=== PATIENT | female | born 1975 | race Caucasian/White ===

== ENCOUNTER 2018-09-19 17:28 | Emergency (ER) | payer SELFPAY ==
[~2018-09-19] VITALS: Ht 170.2 cm; Wt 102.7 kg
[2018-09-19 17:48] VITALS: BP 176/107
--- NOTE | 2018-09-19 17:56 | NUR ---
pt states she has been noncompliant with htn meds x 2 years. denies chest pain, denies headache, denies sob, denies vision changes.
[2018-09-19] MEDS ORDERED: KETOROLAC 30 MG/1 ML ONE (18:18)
--- NOTE | 2018-09-19 18:23 | NUR ---
Discharge instructions discussed with patient including when to return to emergency department, patient verbalizes understanding. Prescription provided with instruction for use. Patient declines waiting for medication hold.
[2018-09-19] MEDS ORDERED: KETOROLAC 30 MG/1 ML IM ONE (18:30)
== END 2018-09-19 18:32 | disposition home or self-care (01) ==
LOC: ED 18:13
DX: K08.89 Other specified disorders of teeth and supporting structures (principal); Z72.9 Problem related to lifestyle, unspecified; F17.200 Nicotine dependence, unspecified, uncomplicated
CPT/HCPCS: 96372; 99283; J1885

== ENCOUNTER 2019-03-15 10:07 | Inpatient (IN) | payer OTHER ==
[~2019-03-15] VITALS: Ht 172.7 cm; Wt 107.8 kg
--- NOTE | 2019-03-15 10:24 | NUR ---
PT AMBULATORY WITH STEADY GAIT TO ROOM
--- NOTE | 2019-03-15 10:28 | NUR ---
43 Y/O FEMALE PRESENTS TO ED WITH C/O ABDOMINAL PAIN. "I'VE HAD SOME ABDOMINAL PAIN OFF AND ON SINCE SUNDAY. I DON'T HAVE ANY NOW. MY LEGS ARE REALLY SWOLLEN TOO. THAT STARTED LAST NIGHT. I DRINK A PINT A DAY. I HAD A BEER LAST NIGHT AT THE [employer]." NO C/O N/V/D, TRAUMA, SYNCOPE, CP, SOB.PT PLACED ON CONT PULSE OX,NIBP. BEDSIDE.
[2019-03-15] MEDS ORDERED: SODIUM CHLORIDE FLUSH 10ML SYR IVF ONE (11:00)
[2019-03-15 11:27] LABS: INTERNATIONAL NORMALIZED RATIO 1.52 (0.93-1.1); PROTHROMBIN TIME 15.7 Seconds (9.6-11.5)
[2019-03-15 11:29] LABS: ALANINE AMINOTRANSFERASE 547 U/L (12-78); ALBUMIN 3.1 g/dL (3.4-5.0); ANION GAP 9 mmol/L (5-15); CALCIUM 8.3 mg/dL (8.5-10.1); CHLORIDE 91 mmol/L (98-107); CREATININE 0.71 mg/dL (0.55-1.02)
[2019-03-15 11:34] LABS: ALKALINE PHOSPHATASE 122 U/L (45-117); BILIRUBIN,TOTAL 1.9 mg/dL (0.2-1.0)
--- NOTE | 2019-03-15 11:34 | NUR ---
PT RESTING ON GURNEY. NO ACUTE DISTRESS NOTED. BEDSIDE. AWIATING IMAGING. VSS.
[2019-03-15 11:35] LABS: MEAN CORPUSCULAR HEMOGLOBIN 17.6 pg (27.0-34.8); MEAN CORPUSCULAR VOLUME 59.9 fL (80-100); MEAN PLATELET VOLUME 8.6 fL (7.4-10.4); PLATELET COUNT 278 x10^3/uL (130-400); RED CELL DISTRIBUTION WIDTH 23.5 % (9.6-15.2)
[2019-03-15 11:36] LABS: MEAN CORPUSCULAR HGB CONC 29.3 g/dL (32.4-35.8)
--- NOTE | 2019-03-15 12:12 | NUR ---
PT RESTING ONGURNEY. NO ACUTE DISTRESS NOTED. AWAITING IMAGING, CALLED CT, CT STATES THEY ARE BACKED UP. BEDSIDE. RELAYED TO PT.
[2019-03-15 12:29] LABS: MD YES
[2019-03-15 12:30] LABS: ANISOCYTOSIS 2+; HYPOCHROMIA 1+; LYMPH#(MANUAL) 0.64 x10^3/uL (1-3.4); LYMPHS% (MANUAL) 6 % (22-44); MICROCYTOSIS 3+; MONOS#(MANUAL) 0.64 x10^3/uL (0.3-2.7); MONOS% (MANUAL) 6 % (2-9); OVALOCYTES 1+; SEG#(MANUAL) 9.33 x10^3/uL (1.8-6.8); SEGS% (MANUAL) 88 % (42-75)
[2019-03-15 12:31] LABS: <PLATELET ESTIMATE> ADEQUATE; <PLT MORPHOLOGY> NORMAL PLT MORPH; LARGE PLATELETS 1+; TARGET CELLS 1+
--- NOTE | 2019-03-15 12:38 | NUR ---
PT BACK FROM IMAGING.
--- NOTE | 2019-03-15 12:42 | NUR ---
Radiology paged as patient CT picture is currently able to be seen via [employer], but has not been "completed" in [employer].
--- NOTE | 2019-03-15 12:46 | NUR ---
PT BACK FROM IMAGING. PT STATED SHE JUST USED THE RESTROOM. DID NOT TAKE UA CUP. NO ACUTE DISTRESS NOTED. BEDSIDE.
[2019-03-15] MEDS ORDERED: OMNIPAQUE 350 MG/ML, 100ML BOTTLE ONE (13:20)
--- NOTE | 2019-03-15 13:24 | NUR ---
BEDSIDE REPORT TO DESIRE GARCIA.
--- NOTE | 2019-03-15 13:28 | NUR ---
RCEIVED REPORT FROM ALLISON. PT UPRIGHT ON GURNEY AWAKE & COMFORTABLE, RESPONDS APPROP TO STAFF, NAD, COMFORT MEASURES PROVIDED, CALL LIGHT WITHIN REACH.
--- NOTE | 2019-03-15 13:44 | NUR ---
Pt to be admitted to [facility], room 427-1. Report called to Bernadine.
[2019-03-15 14:07] LABS: MICROSCOPIC AUTO
[2019-03-15 14:08] LABS: CULTURE INDICATED? YES
[2019-03-15 14:43] VITALS: BP 149/101
[2019-03-15] MEDS ORDERED: LISI-420 PO (14:43)
[2019-03-15 15:00] VITALS: BP 149/101
[2019-03-15] MEDS ORDERED: ENALAPRILAT 1.25 MG/ML, 2ML IVPush PRN (17:00)
[2019-03-15] MEDS ORDERED: ONDANSETRON 2MG/ML, 2ML IVPush PRN (17:00)
[2019-03-15] MEDS ORDERED: POLYETHYLENE GLYCOL 17 GM PACKET PO PRN (17:00)
[2019-03-15] MEDS ORDERED: ENOXAPARIN 40 MG/0.4 ML SQ SCH (17:00)
[2019-03-15] MEDS ORDERED: ONDANSETRON ODT 4 MG PO PRN (17:00)
[2019-03-15] MEDS ORDERED: DOCUSATE 100 MG CAPSULE PO PRN (17:00)
[2019-03-15] MEDS ORDERED: LORazepam 1MG TABLET PO PRN (17:00)
[2019-03-15] MEDS ORDERED: LABETALOL 5MG/ML, 20ML IVPush PRN (17:00)
[2019-03-15] MEDS ORDERED: CEFTRIAXONE PMX 1GM/50ML 50 ML IV SCH (17:00)
[2019-03-15] MEDS ORDERED: BISACODYL 10 MG SUPP PR PRN (17:00)
[2019-03-15] MEDS ORDERED: IBUPROFEN 600 MG TABLET PO PRN (17:00)
[2019-03-15 17:27] LABS: TROPONIN I 0.228 ng/mL (0.000-0.045)
[2019-03-15] MEDS: POTASSIUM CHLORIDE 20 MEQ TAB.ER.PRT PO SCH (17:30)
[2019-03-15] MEDS: FUROSEMIDE 40 MG TABLET PO SCH (17:30)
[2019-03-15 19:10] LABS: TROPONIN I 0.239 ng/mL (0.000-0.045)
[2019-03-15 19:54] VITALS: BP 145/97
[2019-03-15 23:55] LABS: TROPONIN I 0.215 ng/mL (0.000-0.045)
[2019-03-16 01:29] VITALS: BP 152/91
[2019-03-16 05:19] LABS: MEAN CORPUSCULAR HEMOGLOBIN 17.8 pg (27.0-34.8); MEAN CORPUSCULAR VOLUME 60.6 fL (80-100); MEAN PLATELET VOLUME 8.6 fL (7.4-10.4); PLATELET COUNT 278 x10^3/uL (130-400); RED BLOOD COUNT 4.68 x10^6/uL (3.82-5.3); RED CELL DISTRIBUTION WIDTH 22.6 % (9.6-15.2)
[2019-03-16 05:32] LABS: MEAN CORPUSCULAR HGB CONC 29.4 g/dL (32.4-35.8)
[2019-03-16 05:34] LABS: ANION GAP 10 mmol/L (5-15); CALCIUM 8.6 mg/dL (8.5-10.1); CHLORIDE 93 mmol/L (98-107)
[2019-03-16 05:42] LABS: % IRON SATURATION 4 % (20-55); ALANINE AMINOTRANSFERASE 488 U/L (12-78); ALKALINE PHOSPHATASE 112 U/L (45-117); BILIRUBIN,TOTAL 2.4 mg/dL (0.2-1.0); IRON LEVEL 17 mcg/dL (50-170); TOTAL IRON BINDING CAPACITY 484 mcg/dL (250-450); TOTAL PROTEIN 6.7 g/dL (6.4-8.2); TRANSFERRIN 374 mg/dL (200-360)
[2019-03-16 05:43] LABS: MD YES
[2019-03-16 05:44] LABS: BASOS#(MANUAL) 0.11 x10^3/uL (0-0.1); BASOS% (MANUAL) 1 % (0-1); EOS#(MANUAL) 0.22 x10^3/uL (0.0-0.4); EOS% (MANUAL) 2 % (1-7); LYMPH#(MANUAL) 1.43 x10^3/uL (1-3.4); LYMPHS% (MANUAL) 13 % (22-44); MONOS#(MANUAL) 0.77 x10^3/uL (0.3-2.7); MONOS% (MANUAL) 7 % (2-9); NRBC % (MANUAL) 3 % (0-1); SEG#(MANUAL) 8.47 x10^3/uL (1.8-6.8); SEGS% (MANUAL) 77 % (42-75)
[2019-03-16 05:45] LABS: ANISOCYTOSIS 2+; MICROCYTOSIS 2+
[2019-03-16 05:46] LABS: <PLATELET ESTIMATE> ADEQUATE; HYPOCHROMIA 2+; OVALOCYTES 1+; TARGET CELLS 1+
[2019-03-16 05:47] LABS: <PLT MORPHOLOGY> NORMAL PLT MORPH
[2019-03-16 07:37] VITALS: BP 144/97
[2019-03-16] MEDS: FOLIC ACID 1 MG TABLET PO SCH (09:36)
[2019-03-16] MEDS: MULTIVITAMIN 1 TABLET PO SCH (09:36)
[2019-03-16] MEDS: FUROSEMIDE 40 MG TABLET PO SCH (09:36)
[2019-03-16] MEDS: THIAMINE 100MG TABLET PO SCH (09:36)
[2019-03-16] MEDS ORDERED: OMNIPAQUE 350 MG/ML, 100ML BOTTLE ONE (12:07)
[2019-03-16 14:24] VITALS: BP 138/91
[2019-03-16] MEDS: ENOXAPARIN 30 MG/0.3 ML SQ SCH (16:36)
[2019-03-16] MEDS: POTASSIUM CHLORIDE 20 MEQ TAB.ER.PRT PO SCH (16:36)
[2019-03-16] MEDS ORDERED: FUROSEMIDE 40 MG TABLET PO SCH (17:00)
[2019-03-16 19:35] VITALS: BP 138/79
[2019-03-17 00:03] VITALS: BP 141/92
[2019-03-17] MEDS: ENOXAPARIN 30 MG/0.3 ML SQ SCH ×2 (04:23→16:23)
[2019-03-17 05:44] LABS: CHLORIDE 98 mmol/L (98-107)
[2019-03-17 05:49] LABS: MEAN CORPUSCULAR HEMOGLOBIN 17.4 pg (27.0-34.8); MEAN CORPUSCULAR VOLUME 60.4 fL (80-100); MEAN PLATELET VOLUME 8.3 fL (7.4-10.4); PLATELET COUNT 283 x10^3/uL (130-400); RED BLOOD COUNT 5.06 x10^6/uL (3.82-5.3); RED CELL DISTRIBUTION WIDTH 23.5 % (9.6-15.2)
[2019-03-17 05:51] LABS: ALANINE AMINOTRANSFERASE 380 U/L (12-78); ALBUMIN 2.9 g/dL (3.4-5.0); ALKALINE PHOSPHATASE 124 U/L (45-117); ANION GAP 7 mmol/L (5-15); BILIRUBIN, DIRECT 1.1 mg/dL (0.1-0.2); BILIRUBIN,TOTAL 1.8 mg/dL (0.2-1.0); CALCIUM 8.4 mg/dL (8.5-10.1); CREATININE 0.68 mg/dL (0.55-1.02); TOTAL PROTEIN 6.8 g/dL (6.4-8.2)
[2019-03-17 06:15] LABS: MEAN CORPUSCULAR HGB CONC 28.8 g/dL (32.4-35.8)
[2019-03-17 06:17] LABS: BASOPHILS # (AUTO) 0.03 x10^3/uL (0-0.1); BASOPHILS % (AUTO) 0 % (0-1); EOSINOPHILS # (AUTO) 0.25 x10^3/uL (0-0.4); EOSINOPHILS % (AUTO) 3 % (1-7); LYMPHOCYTES # (AUTO) 0.96 x10^3/uL (1-3.4); LYMPHOCYTES % (AUTO) 11 % (22-44); MD SCAN; MONOCYTES # (AUTO) 0.94 x10^3/uL (0.2-0.8); MONOCYTES % (AUTO) 11 % (2-9); NEUTROPHILS # (AUTO) 6.55 x10^3/uL (1.8-6.8); NEUTROPHILS % (AUTO) 75 % (42-75)
[2019-03-17 08:15] VITALS: BP 161/99
[2019-03-17] MEDS ORDERED: POTASSIUM CHLORIDE 20 MEQ TAB.ER.PRT ONE (09:07)
[2019-03-17] MEDS: SPIRONOLACTONE 100 MG TABLET PO SCH (09:10)
[2019-03-17] MEDS: THIAMINE 100MG TABLET PO SCH (09:10)
[2019-03-17] MEDS: FUROSEMIDE 40 MG/4 ML IV SCH ×2 (09:10→16:22)
[2019-03-17] MEDS: MULTIVITAMIN 1 TABLET PO SCH (09:10)
[2019-03-17] MEDS: FOLIC ACID 1 MG TABLET PO SCH (09:11)
[2019-03-17] MEDS: IRON SUCROSE COMPLEX 100MG/5ML IV SCH (09:16)
[2019-03-17] MEDS ORDERED: POTASSIUM CHLORIDE 20 MEQ TAB.ER.PRT PO ONE (09:30)
[2019-03-17] MEDS: LISINOPRIL 10 MG TABLET PO SCH (10:54)
[2019-03-17 13:16] VITALS: BP 142/85
[2019-03-17] MEDS ORDERED: SIMETHICONE 80 MG CHEW TAB PO PRN (14:30)
[2019-03-17 16:00] VITALS: BP 146/97
[2019-03-17] MEDS: POTASSIUM CHLORIDE 20 MEQ TAB.ER.PRT PO SCH (16:22)
[2019-03-17 18:40] VITALS: BP 158/100
[2019-03-18 01:35] VITALS: BP 142/92
[2019-03-18] MEDS: ENOXAPARIN 30 MG/0.3 ML SQ SCH ×2 (04:32→17:08)
[2019-03-18 05:17] LABS: ALBUMIN 2.9 g/dL (3.4-5.0); ANION GAP 4 mmol/L (5-15); CHLORIDE 99 mmol/L (98-107)
[2019-03-18 05:22] LABS: ALANINE AMINOTRANSFERASE 273 U/L (12-78); ALKALINE PHOSPHATASE 122 U/L (45-117); BILIRUBIN,TOTAL 1.7 mg/dL (0.2-1.0); CREATININE 0.69 mg/dL (0.55-1.02); TOTAL PROTEIN 6.8 g/dL (6.4-8.2)
[2019-03-18 05:29] LABS: MEAN CORPUSCULAR HEMOGLOBIN 17.5 pg (27.0-34.8); MEAN CORPUSCULAR VOLUME 61.5 fL (80-100); MEAN PLATELET VOLUME 8.2 fL (7.4-10.4); PLATELET COUNT 303 x10^3/uL (130-400); RED BLOOD COUNT 5.71 x10^6/uL (3.82-5.3); RED CELL DISTRIBUTION WIDTH 23.1 % (9.6-15.2)
[2019-03-18 05:50] LABS: MEAN CORPUSCULAR HGB CONC 28.4 g/dL (32.4-35.8)
[2019-03-18 05:53] LABS: BASOPHILS # (AUTO) 0.03 x10^3/uL (0-0.1); BASOPHILS % (AUTO) 0 % (0-1); EOSINOPHILS # (AUTO) 0.32 x10^3/uL (0-0.4); EOSINOPHILS % (AUTO) 3 % (1-7); LYMPHOCYTES # (AUTO) 1.71 x10^3/uL (1-3.4); LYMPHOCYTES % (AUTO) 16 % (22-44); MD SCAN; MONOCYTES # (AUTO) 1.11 x10^3/uL (0.2-0.8); MONOCYTES % (AUTO) 11 % (2-9); NEUTROPHILS # (AUTO) 7.36 x10^3/uL (1.8-6.8); NEUTROPHILS % (AUTO) 70 % (42-75)
[2019-03-18] MEDS: THIAMINE 100MG TABLET PO SCH (08:15)
[2019-03-18] MEDS: FUROSEMIDE 40 MG/4 ML IV SCH ×2 (08:15→17:06)
[2019-03-18] MEDS: MULTIVITAMIN 1 TABLET PO SCH (08:15)
[2019-03-18] MEDS: SPIRONOLACTONE 100 MG TABLET PO SCH (08:15)
[2019-03-18] MEDS: FOLIC ACID 1 MG TABLET PO SCH (08:16)
[2019-03-18] MEDS: IRON SUCROSE COMPLEX 100MG/5ML IV SCH (08:16)
[2019-03-18] MEDS: LISINOPRIL 10 MG TABLET PO SCH (08:16)
[2019-03-18 09:59] VITALS: BP 104/68
[2019-03-18 12:35] VITALS: BP 133/96
[2019-03-18] MEDS: POTASSIUM CHLORIDE 20 MEQ TAB.ER.PRT PO SCH (17:06)
[2019-03-18] MEDS: METOPROLOL TARTRATE 25 MG TABLET PO SCH (17:07)
[2019-03-18 19:47] VITALS: BP 124/86
[2019-03-19 00:52] VITALS: BP 123/84
[2019-03-19] MEDS: METOPROLOL TARTRATE 25 MG TABLET PO SCH ×3 (01:09→16:14)
[2019-03-19] MEDS: ENOXAPARIN 30 MG/0.3 ML SQ SCH ×2 (04:23→16:14)
[2019-03-19 05:37] LABS: MEAN CORPUSCULAR HEMOGLOBIN 17.7 pg (27.0-34.8); MEAN CORPUSCULAR VOLUME 61.3 fL (80-100); PLATELET COUNT 309 x10^3/uL (130-400); RED CELL DISTRIBUTION WIDTH 23.8 % (9.6-15.2)
[2019-03-19 05:44] LABS: ANION GAP 8 mmol/L (5-15); CALCIUM 9.1 mg/dL (8.5-10.1); CHLORIDE 100 mmol/L (98-107); CREATININE 0.65 mg/dL (0.55-1.02)
[2019-03-19 05:47] LABS: MEAN CORPUSCULAR HGB CONC 28.9 g/dL (32.4-35.8)
[2019-03-19 06:06] LABS: ANISOCYTOSIS 2+; BASOPHILS # (AUTO) 0.07 x10^3/uL (0-0.1); BASOPHILS % (AUTO) 1 % (0-1); EOSINOPHILS # (AUTO) 0.37 x10^3/uL (0-0.4); EOSINOPHILS % (AUTO) 3 % (1-7); HYPOCHROMIA 2+; LYMPHOCYTES # (AUTO) 1.46 x10^3/uL (1-3.4); LYMPHOCYTES % (AUTO) 13 % (22-44); MD MORPH REVIEW ONLY; MICROCYTOSIS 2+; MONOCYTES # (AUTO) 1.17 x10^3/uL (0.2-0.8); MONOCYTES % (AUTO) 11 % (2-9); NEUTROPHILS # (AUTO) 7.99 x10^3/uL (1.8-6.8); NEUTROPHILS % (AUTO) 72 % (42-75); OVALOCYTES 1+
[2019-03-19 06:07] LABS: <PLATELET ESTIMATE> ADEQUATE; <PLT MORPHOLOGY> NORMAL PLT MORPH; TARGET CELLS 1+
[2019-03-19 06:08] LABS: POLYCHROMASIA 1+
[2019-03-19] MEDS: MULTIVITAMIN 1 TABLET PO SCH (07:43)
[2019-03-19] MEDS: FUROSEMIDE 40 MG/4 ML IV SCH ×2 (07:43→16:14)
[2019-03-19] MEDS: THIAMINE 100MG TABLET PO SCH (07:43)
[2019-03-19] MEDS: LISINOPRIL 10 MG TABLET PO SCH (07:43)
[2019-03-19] MEDS: IRON SUCROSE COMPLEX 100MG/5ML IV SCH (07:43)
[2019-03-19] MEDS: FOLIC ACID 1 MG TABLET PO SCH (07:43)
[2019-03-19 07:46] VITALS: BP 128/90
[2019-03-19] MEDS: SPIRONOLACTONE 100 MG TABLET PO SCH (07:46)
[2019-03-19] MEDS ORDERED: MAGNESIUM SULFATE PMX 2GM/50ML 50 ML IV ONE (09:30)
[2019-03-19 13:59] VITALS: BP 121/83
[2019-03-19] MEDS: POTASSIUM CHLORIDE 20 MEQ TAB.ER.PRT PO SCH (16:13)
[2019-03-19 19:22] VITALS: BP 115/77
[2019-03-20 00:37] VITALS: BP 102/67
[2019-03-20] MEDS: METOPROLOL TARTRATE 25 MG TABLET PO SCH ×2 (00:43→08:39)
[2019-03-20] MEDS: ENOXAPARIN 30 MG/0.3 ML SQ SCH (04:58)
[2019-03-20 05:49] LABS: ALANINE AMINOTRANSFERASE 150 U/L (12-78); ALBUMIN 2.9 g/dL (3.4-5.0); ANION GAP 8 mmol/L (5-15); CALCIUM 8.7 mg/dL (8.5-10.1); CHLORIDE 98 mmol/L (98-107); CREATININE 0.81 mg/dL (0.55-1.02)
[2019-03-20 05:51] LABS: ALKALINE PHOSPHATASE 109 U/L (45-117); TOTAL PROTEIN 6.9 g/dL (6.4-8.2)
[2019-03-20 07:08] VITALS: BP 104/73
[2019-03-20] MEDS: MULTIVITAMIN 1 TABLET PO SCH (08:38)
[2019-03-20] MEDS: THIAMINE 100MG TABLET PO SCH (08:38)
[2019-03-20] MEDS: IRON SUCROSE COMPLEX 100MG/5ML IV SCH (08:38)
[2019-03-20] MEDS: FOLIC ACID 1 MG TABLET PO SCH (08:38)
[2019-03-20] MEDS: LISINOPRIL 10 MG TABLET PO SCH (08:39)
[2019-03-20] MEDS: SPIRONOLACTONE 100 MG TABLET PO SCH (08:39)
[2019-03-20] MEDS ORDERED: FURO-93 PO (10:49)
[2019-03-20] MEDS ORDERED: ASPI81TA45 PO (10:49)
[2019-03-20] MEDS ORDERED: FERR325T18 PO (10:49)
[2019-03-20] MEDS ORDERED: SPIR50TA PO (10:49)
[2019-03-20] MEDS ORDERED: METO-93 PO (10:49)
[2019-03-20] MEDS ORDERED: LISI-420 PO (10:49)
[2019-03-20] MEDS ORDERED: FLU VACC QS2019-20 36MOS UP/PF 0.5 ML IM-VACC ONE (11:00)
== END 2019-03-20 12:43 | disposition home or self-care (01) | DRG 292 ==
LOC: ED 11:04 → EDIP 13:18 → 4WST 14:01 → 5SO 19:50 → DCLOUNGE 03-20 12:28
PROVIDERS: ADMIT Hospitalist; ATTEND Internal Medicine
DX: I11.0 Hypertensive heart disease with heart failure (principal); E46 Unspecified protein-calorie malnutrition; E87.1 Hypo-osmolality and hyponatremia; I31.3 Pericardial effusion (noninflammatory); B17.9 Acute viral hepatitis, unspecified; D50.9 Iron deficiency anemia, unspecified; I50.40 Unspecified combined systolic (congestive) and diastolic (congestive) heart failure; I42.6 Alcoholic cardiomyopathy; F10.20 Alcohol dependence, uncomplicated; Y90.9 Presence of alcohol in blood, level not specified; F17.210 Nicotine dependence, cigarettes, uncomplicated; K02.9 Dental caries, unspecified; K59.00 Constipation, unspecified; Z82.49 Family history of ischemic heart disease and other diseases of the circulatory system; Z90.49 Acquired absence of other specified parts of digestive tract; Z91.19 Patient's noncompliance with other medical treatment and regimen; Z98.51 Tubal ligation status; Z79.899 Other long term (current) drug therapy; Z79.82 Long term (current) use of aspirin; I42.0 Dilated cardiomyopathy
CPT/HCPCS: 36415; 99285; C8929; 71275; 74177; 80048; 80053; 80074; 81001; 82248; 82728; 83540; 83550; 83690; 83735; 83880; 84100; 84466; 84484; 85025; 85379; 85610; 85730; 87086; 90686; 93005; G0378; J0696; J1650; J1756; J1940; Q9957; Q9967; J3475

== ENCOUNTER 2019-04-23 09:05 | Emergency (ER) | payer OTHER ==
[~2019-04-23] VITALS: Ht 172.7 cm; Wt 102.0 kg
[~2019-04-23 09:05] MED LIST: ASPI81TA45 PO; FERR325T18 PO; FURO-93 PO; LISI-420 PO; METO-93 PO; SPIR50TA PO
[2019-04-23 09:08] VITALS: BP 156/90
--- NOTE | 2019-04-23 09:48 | NUR ---
pt here for vaginal discharge. pt states this all started after leaving a tampon in for to long. provider made aware.
[2019-04-23 09:55] LABS: CLUE CELLS NONE SEEN (NONE SEEN); WET PREP WBCS MODERATE (FEW)
[2019-04-23] MEDS ORDERED: AZITHROMYCIN 500 MG TABLET PO ONE (10:00)
[2019-04-23] MEDS ORDERED: CEFTRIAXONE 250 MG IM ONE (10:00)
[2019-04-23] MEDS ORDERED: metroNIDAZOLE 500 MG TABLET ONE (10:06)
[2019-04-23] MEDS ORDERED: AZITHROMYCIN 500 MG TABLET ONE (10:07)
[2019-04-23] MEDS ORDERED: CEFTRIAXONE 250 MG ONE (10:07)
--- NOTE | 2019-04-23 10:14 | NUR ---
BEDSIDE REPORT FROM AMANDA PHIPPS, PT RESTING IN [facility]. ON MONITOR. CALL LIGHT WITHIN REACH.
[2019-04-23] MEDS ORDERED: metroNIDAZOLE 500 MG TABLET PO ONE (10:30)
== END 2019-04-23 10:20 | disposition home or self-care (01) ==
LOC: ED 09:47
DX: A59.01 Trichomonal vulvovaginitis (principal); I10 Essential (primary) hypertension; Z87.891 Personal history of nicotine dependence
CPT/HCPCS: 87210; 87491; 87591; 87808; 96372; 99283; J0696